=== PATIENT | female | born 1995 | race Two or more races ===

== ENCOUNTER 2025-02-02 17:11 | Observation (INO) | payer MEDICAID, SELFPAY ==
[2025-02-02 17:20] VITALS: BP 117/72; PULSE 96; TEMP 36.8
[2025-02-02 17:24] VITALS: BP 117/72; PULSE 96; RESP 18; RESP 98; TEMP 36.8
[2025-02-02 17:25] VITALS: TEMP 36.8; BMI 34.0
== END 2025-02-02 18:06 | disposition home or self-care (01) ==
PROVIDERS: Admitting Provider Obstetrics & Gynecology; Visit Provider Obstetrics & Gynecology
DX: O26.893 Other specified pregnancy related conditions, third trimester (principal); Z3A.39 39 weeks gestation of pregnancy; R10.30 Lower abdominal pain, unspecified
CPT/HCPCS: 59025; 59899